=== PATIENT | male | born 1960 | race Caucasian/White ===

== ENCOUNTER 2018-12-07 08:47 | Outpatient (CLI) | payer OTHER ==
[~2018-12-07] VITALS: Ht 188 cm; Wt 142.9 kg
[2018-12-07 09:10] LABS: TOTAL HEMOGLOBIN 15.8 G/dl (14.0-18.0)
[2018-12-07] MEDS ORDERED: albuterol 2.5 MG/3 ML nebule NEB ONE (09:25)
== END 2018-12-07 23:59 | disposition home or self-care (01) ==
LOC: RT 08:47
PROVIDERS: ATTEND Specialist
DX: J98.8 Other specified respiratory disorders (principal); R06.09 Other forms of dyspnea; R06.02 Shortness of breath
CPT/HCPCS: 85018; 94060; 94727; 94729; 94760

== ENCOUNTER 2019-02-15 10:29 | Day surgery (SDC) | payer OTHER ==
[2019-02-13 12:39] LABS: BASOPHILS # (AUTO) 0.1 X10'3 (0-0.2); BASOPHILS % (AUTO) 0.9 % (0-1); EOSINOPHILS # (AUTO) 0.3 X10'3 (0-0.9); EOSINOPHILS % (AUTO) 3.6 % (0-6); HEMATOCRIT 44.4 % (42.0-52.0); HEMOGLOBIN 14.8 g/dl (14.0-17.9); LYMPHOCYTES # (AUTO) 1.4 X10'3 (1.1-4.8); LYMPHOCYTES % (AUTO) 19.7 % (21-51); MEAN CORPUSCULAR HEMOGLOBIN 30.2 PG (27.0-31.0); MEAN CORPUSCULAR HGB CONC 33.4 g/dL (33.0-36.5); MEAN CORPUSCULAR VOLUME 90.5 FL (78-98); MEAN PLATELET VOLUME 7.7 FL (7.4-10.4); MONOCYTES # (AUTO) 0.7 X10'3 (0-0.9); MONOCYTES % (AUTO) 9.6 % (2-12); NEUTROPHILS # (AUTO) 4.6 X10'3 (1.8-7.7); NEUTROPHILS % (AUTO) 66.2 % (42-75); PLATELET COUNT 316 X10'3 (140-440); RED BLOOD COUNT 4.91 X10'6 (4.70-6.10); RED CELL DISTRIBUTION WIDTH 13.4 % (11.5-14.5)
[2019-02-13 12:47] LABS: PARTIAL THROMBOPLASTIN TIME 29 SECONDS (22-32)
[2019-02-13 12:50] LABS: ALANINE AMINOTRANSFERASE 31 U/L (12-78); ALBUMIN 3.6 G/DL (3.4-5.0); ALKALINE PHOSPHATASE 62 IU/L (46-116); ANION GAP 7 (8-16); ASPARTATE AMINO TRANSFERASE 17 U/L (10-37); BILIRUBIN,TOTAL 0.5 MG/DL (0.1-1.0); BLOOD UREA NITROGEN 20 MG/DL (7-18); BUN/CREATININE RATIO 16.9 (5.4-32.0); CALCIUM 9.3 MG/DL (8.5-10.1); CHLORIDE 101 MMOL/L (99-107); CREATININE 1.18 MG/DL (0.60-1.10); GLUCOSE 124 MG/DL (70-104); POTASSIUM 4.1 MMOL/L (3.5-5.1); SODIUM 138 MMOL/L (135-145); TOTAL CARBON DIOXIDE 29.6 MMOL/L (24-32); TOTAL PROTEIN 7.3 G/DL (6.4-8.2); eGFR 63 ML/MIN
[~2019-02-15] VITALS: Ht 188 cm; Wt 148.0 kg
[2019-02-15] VITALS (11 sets, daily range): BP systolic 115–150; BP diastolic 61–85
[2019-02-15] MEDS ORDERED: LORazepam 0.5 MG tablet PO PRN (10:45)
[2019-02-15] MEDS ORDERED: normal saline 1,000 ML IV SCH (10:45)
[2019-02-15] MEDS ORDERED: diphenhydrAMINE 25mg capsule PO PRN (10:45)
[2019-02-15] MEDS ORDERED: nitroGLYCERIN 0.4mg SUBLingual tab SL PRN (10:45)
[2019-02-15] MEDS ORDERED: LISI40TA4 PO (11:20)
[2019-02-15] MEDS ORDERED: METF500T PO (11:20)
[2019-02-15] MEDS ORDERED: CLON0.1T PO (11:20)
[2019-02-15] MEDS ORDERED: RABE20TA28 PO (11:20)
[2019-02-15] MEDS ORDERED: FLEC150T PO (11:20)
[2019-02-15] MEDS ORDERED: ASPI-611 PO (11:20)
[2019-02-15] MEDS ORDERED: midazolam 2 mg/2 ml injection ONE ×2 (11:45→12:33)
[2019-02-15] MEDS ORDERED: fentaNYL/PF 50MCG/1 ML 2ML syringe ONE ×2 (11:45→12:46)
[2019-02-15] MEDS ORDERED: heparin 1,000 UNITS/NS 500ml 500 ML ONE (11:45)
[2019-02-15] MEDS ORDERED: iohexol 350 MG/ML 50ML vial IV ONE (11:45)
[2019-02-15] MEDS ORDERED: LIDOcaine 1% (10mg/ml)w/preservative injection 20ml MDV ONE (11:45)
[2019-02-15] MEDS ORDERED: iohexol 350MG/ML 100ml bottle IV ONE (11:45)
[2019-02-15] MEDS ORDERED: HYDROcodone/acetaminophen 5mg/325mg tablet PO PRN (13:40)
[2019-02-15] MEDS ORDERED: OXAZEpam 15mg capsule PO PRN (13:40)
[2019-02-15] MEDS ORDERED: proCHLORperazine 10 MG/2 ml inj IV PRN (13:40)
[2019-02-15] MEDS ORDERED: ondansetron/PF 4mg/2ml inj IV PRN (13:40)
[2019-02-15] MEDS ORDERED: HYDROcodone/acetaminophen 10/325mg tab PO PRN (13:40)
[2019-02-15] MEDS ORDERED: acetaminophen 325mg tablet PO PRN (13:40)
== END 2019-02-15 19:05 | disposition home or self-care (01) ==
LOC: SSTAY O 10:29
PROVIDERS: ATTEND Internal Medicine Cardiovascular Disease
DX: I25.10 Atherosclerotic heart disease of native coronary artery without angina pectoris (principal); F41.1 Generalized anxiety disorder; K20.0 Eosinophilic esophagitis; I10 Essential (primary) hypertension; Z98.890 Other specified postprocedural states; Z87.442 Personal history of urinary calculi
CPT/HCPCS: 36415; 71046; 80053; 82948; 85025; 85610; 85730; 93005; 93458; 99152; 99153; A6257; J1644; J2001; J2250; J3010; J7030; Q0163; Q9967; A4620; C1760; C1769

== ENCOUNTER 2020-01-10 14:10 | Outpatient (CLI) | payer BC ==
[~2020-01-10] VITALS: Ht 188 cm; Wt 142.9 kg
[~2020-01-10 14:10] MED LIST: ASPI-611 PO; CLON0.1T PO; FLEC150T PO; LISI40TA4 PO; METF500T PO; RABE20TA28 PO
[2020-01-10 14:46] LABS: TOTAL HEMOGLOBIN 14.6 G/dl (14.0-17.9)
[2020-01-10] MEDS ORDERED: albuterol 2.5 MG/3 ML nebule NEB ONE (15:05)
== END 2020-01-10 23:59 | disposition home or self-care (01) ==
LOC: RT 14:10
PROVIDERS: ATTEND Specialist
DX: R06.02 Shortness of breath (principal); R06.00 Dyspnea, unspecified
CPT/HCPCS: 85018; 94060; 94727; 94729; 94760